=== PATIENT | male | born 1955 | race Caucasian/White ===

== ENCOUNTER 2019-07-22 09:17 | Day surgery (SDC) | payer BC ==
[~2019-07-22 09:17] MED LIST: Midazolam 1 MG/ML 2 ML SDV ONE; Propofol 200 MG/20 ML SDV ONE
[2019-07-22] MEDS ORDERED: Sodium Chloride 0.9% 10 ML Syringe FLUSH PRN (09:30)
[2019-07-22] MEDS: Lactated Ringers 1,000 ML IV SCH (10:18)
--- NOTE | 2019-07-22 10:47 | PCM.HPR ---
H & P Addendum review - H & P Addendum Review Date of Original H & P: 07/07/19 Date Reviewed: 07/22/19 Time Reviewed: 10:47 Patient was Examined: No Changes
[2019-07-22] MEDS ORDERED: Midazolam 1 MG/ML 2 ML SDV ONE (10:52)
[2019-07-22] MEDS ORDERED: Propofol 200 MG/20 ML SDV ONE ×2 (10:52→11:32)
--- NOTE | 2019-07-22 11:19 | PCM.OPNOTE ---
- General Post-Op/Procedure Note Date of Surgery/Procedure: 07/22/19 Operative Procedure(s): Colonoscopy Findings: normal Pre Op Diagnosis: FH Polyps Post-Op Diagnosis: Same Anesthesia Technique: BLAS Primary Surgeon: Georgi Moore Anesthesia Provider: Jacquie Mari Complications: None Condition: Good
--- NOTE | 2019-07-22 14:28 | OR ---
Date of Procedure: 07/22/2019 PREOPERATIVE DIAGNOSIS: Family history of colon polyps in mother. POSTOPERATIVE DIAGNOSIS: Normal colonoscopy. PROCEDURE: Colonoscopy. ANESTHESIA: IV sedation. DESCRIPTION OF PROCEDURE: The patient was brought to the procedure room where he was placed on his left side and IV sedation administered. Digital rectal exam was performed which was normal. Colonoscope was inserted and advanced to the level of the cecum with minimal difficulty getting through the ascending colon, requiring some pressure on the abdomen. Cecum was reached and confirmed by identifying the appendiceal lumen and ileocecal valve. Prep was good and surfaces were well visualized. Upon withdrawing the scope, the ascending, transverse, and descending colon were normal in appearance. Sigmoid colon and rectum were normal. Retroflexion was normal. Air was removed and the scope withdrawn. The patient tolerated the procedure well and returned to Recovery in stable condition. Recommended routine colonoscopy again in 5 years. SABRINA RUSSO MD /[id number]
== END 2019-07-22 13:10 | disposition home or self-care (01) ==
LOC: LL.SDS 09:17
PROVIDERS: ATTEND Surgery
DX: Z12.11 Encounter for screening for malignant neoplasm of colon (principal); E78.5 Hyperlipidemia, unspecified; Z88.8 Allergy status to other drugs, medicaments and biological substances; Z91.018 Allergy to other foods; Z99.89 Dependence on other enabling machines and devices; Z80.0 Family history of malignant neoplasm of digestive organs; Z79.899 Other long term (current) drug therapy
CPT/HCPCS: J2250; J2704; J7120

== ENCOUNTER 2021-05-01 18:41 | Emergency (ER) | payer MEDICARE, BC ==
[2021-05-01] MEDS: Acetaminophen/HYDROcodone 325-10 MG Tab PO ONE (19:09)
--- NOTE | 2021-05-01 19:11 | EDM.PDOC ---
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 The gate swung open and he fell backwards. He landed with axial force on his head and he was pulled out of the way of the cattle. No LOC. Not on blood thinners/. This happened several hours prior to arrival. He managed to finish working cattle, went home, showered and came here. Ambulatory at the ED. Complains of neck pain, headache, left shoulder pain. No numbness down the left arm. no elbow, wrist or hand problems. he is left arm dominant. Not on a blood thinner Onset: Today, Sudden Duration: Hour(s): Location: Reports: Head, Face, Upper Extremity, Left Improves with: Reports: None Worsens with: Reports: Movement Associated Symptoms: Reports: No Other Symptoms. Denies: Confusion Shoulder Pain Score (Numeric/FACES): 7 - Related Data Allergies Allergy/AdvReac Type Severity Reaction Status Date / Time atorvastatin Allergy Other Verified 05/01/21 18:48 sesame oil Allergy Rash Verified 05/01/21 18:48 Home Meds: Home Meds Multivitamin [Multi-Vitamin Daily] 1 tab PO DAILY 07/13/14 [History] Fenofibrate Nanocrystallized [Tricor] 145 mg PO DAILY 07/22/19 [History] Fish Oil/[place]-3 Fatty Acids [Fish Oil 1,000 MG] 2,000 mg PO BID 07/22/19 [History] Flaxseed Oil 1,000 mg PO BID 07/22/19 [History] Cyclobenzaprine [Flexeril] 10 mg PO TID PRN #15 tab 05/01/21 [Rx] Hydrocodone/Acetaminophen [HYDROcodone-Acetaminophen 5-325 MG] 1 each PO Q6HR PRN #14 tab 05/01/21 [Rx] Past Medical History Cardiovascular History: Reports: High Cholesterol - Past Surgical History GI Surgical History: Reports: Appendectomy Review of Systems - Review of Systems Review Of Systems: See Below Constitutional: Reports: No Symptoms. Denies: Chills, Diaphoresis, Fever Eyes: Reports: No Symptoms Ears: Reports: No Symptoms. Denies: Dizziness, Pain, Tinnitus, Bloody Discharge Nose: Reports: No Symptoms. Denies: Clots, Epistaxis, Clear Discharge, Purulent Discharge Mouth/Throat: Reports: No Symptoms. Denies: Lip Swelling, Tongue Swelling, Loose Teeth, Difficulty Swallowing Respiratory: Reports: No Symptoms. Denies: Shortness of Breath, Wheezing, Cough Cardiovascular: Reports: No Symptoms. Denies: Chest Pain, Lightheadedness GI/Abdominal: Reports: No Symptoms. Denies: Abdominal Pain, Diarrhea, Nausea, Vomiting Genitourinary: Reports: No Symptoms. Denies: Dysuria, Hematuria Musculoskeletal: Reports: Neck Pain, Shoulder Pain (left). Denies: Back Pain Skin: Reports: No Symptoms Neurological: Reports: Headache Psychiatric: Reports: No Symptoms ED EXAM, GENERAL - Physical Exam Exam: See Below Exam Limited By: Altered Mental Status General Appearance: Alert, WD/WN, No Apparent Distress Eye Exam: Bilateral Eye: EOMI, Normal Inspection, PERRL Ears: Normal External Exam, Normal Canal, Normal TMs Nose: Normal Inspection, Normal Mucosa, No Blood, Nasal Deformity Throat/Mouth: Normal Inspection, Normal Lips, Normal Teeth, Normal Voice Head: Other (bruising on the top of the head, no step off or deformities) Neck: Limited Range of Motion, Other (Painful to palpation of the posterior neck, spasm on the left trapezius. No pain to palpation of the left scapula) Respiratory/Chest: No Respiratory Distress, Lungs Clear, Normal Breath Sounds Cardiovascular: Normal Peripheral Pulses, Regular Rate, Rhythm, No Murmur GI/Abdominal: Normal Bowel Sounds, Soft, No Abnormal Bruit Back Exam: Normal Inspection, Full Range of Motion Extremities: Limited Range of Motion (left shoulder with deformity of the AC joint and tenting of skin, no pain to palpation of the proximal humerus, normal sensation at the deltoid. No pain to flexion, extension of the elbow, and wrist. Normal sensation. slight decrease in the hammerer strength on the left due to pain in the clavicle ) Neurological: Alert, Oriented, Normal Cognition, No Motor/Sensory Deficits Psychiatric: Normal Affect Skin Exam: Warm Course - Vital Signs Last Recorded V/S: Last Vital Signs Temp 36.7 C 05/01/21 18:42 Pulse 91 05/01/21 18:42 Resp 20 05/01/21 18:42 BP 151/98 H 05/01/21 18:42 Pulse Ox 100 05/01/21 18:42 - Orders/Labs/Meds Orders: Active Orders 24 hr Category Date Time Status Cervical Spine wo Cont [CT] Stat Exams 05/01/21 19:06 Taken Chest 2V [CR] Stat Exams 05/01/21 19:06 Taken Head wo Cont [CT] Stat Exams 05/01/21 19:06 Taken Shoulder Comp Lt [CR] Stat Exams 05/01/21 19:06 Taken Meds: Medications Discontinued Medications Generic Name Dose Route Start Last Admin Trade Name Freq PRN Reason Stop Dose Admin Hydrocodone Bitart/Acetaminophen 1 tab 05/01/21 19:06 05/01/21 19:09 Acetaminophen/Hydrocodone 325-10 Mg Tab PO 05/01/21 19:07 1 tab ONETIME ONE Administration - Radiology Interpretation Free Text/Narrative:: chest x-ray no acute, left shoulder with 3rd degree AC separation, no fracture. awaiting interpretation Ct scan head no acute, ct scan neck with arthritic changes no acute, discussed with radiologist - Re-Assessments/Exams Free Text/Narrative Re-Assessment/Exam: 05/01/21 19:16 Patient desires an oral pain pill. hydrocodone offered Will get a CT of the head, c spine, x-ray of the left shoulder and chest. Will not put on c collar due to left clavicle deformity, has happened mutliple hours ago. Will limit his motion. 05/01/21 21:00 Discussed results with patient . Advised close follow up with orthopedics as this injury will be difficult without operative intervention. Given number for [facility] Given tramadol for tonight due to limited narcotic options and scripts for hydrocodone and flexeril for home. Sling, given advised to return for neurologic changes. Departure - Departure Time of Disposition: 20:47 Disposition: Home, Self-Care 01 Condition: Good Clinical Impression: Head injury, Cervical strain, AC separation - Discharge Information *PRESCRIPTION DRUG MONITORING PROGRAM REVIEWED*: Not Applicable *COPY OF PRESCRIPTION DRUG MONITORING REPORT IN PATIENT GO: Not Applicable Prescriptions: Cyclobenzaprine [Flexeril] 10 mg PO TID PRN #15 tab PRN Reason: Pain Hydrocodone/Acetaminophen [HYDROcodone-Acetaminophen 5-325 MG] 1 each PO Q6HR PRN #14 tab PRN Reason: Pain/Fever Instructions: Head Injury, Adult, Acromioclavicular Separation, Cervical Strain and Sprain Rehab-SportsMed, How To Use a Sling, [id number] Forms: ED Department Discharge Additional Instructions: Ice, make sure you are moving your neck frequently as the muscles will spasm more over the next two days. You were given hydrocoodone in the Ed and a prescription to use as needed for pain but do not use with alcohol. You are given a prescription for a muscle relaxer, flexeril to use for spasm. The tramadol you are sent home with are more mild pain pill and can use them tonight or every 8 hours as needed for mild pain that tylenol does not help. You should expect to get more sore for the next several days. MOvement, stretching will help. The left shoulder need surgical consultation dueto the pressure on the skin. Call [facility] at [phone] to be seen for your 3rd degree AC separation and surgical consultation. Use the sling at all times. elevate the hand on the chest to minimae swelling. You head CT was negative, but you can have headaches, dizziness, nausea and light sensitivity for several days. Try to limit strenuous activity and return to the ED for persistent vomiting, neurological changes Sepsis Event Note (ED) - Evaluation Sepsis Screening Result: No Definite Risk - Focused Exam Vital Signs: Vital Signs Temp Pulse Resp BP Pulse Ox 05/01/21 18:42 36.7 C 91 20 151/98 H 100 - My Orders Last 24 Hours: My Active Orders 05/01/21 19:06 Cervical Spine wo Cont [CT] Stat Chest 2V [CR] Stat Head wo Cont [CT] Stat Shoulder Comp Lt [CR] Stat - Assessment/Plan Last 24 Hours: My Active Orders 05/01/21 19:06 Cervical Spine wo Cont [CT] Stat Chest 2V [CR] Stat Head wo Cont [CT] Stat Shoulder Comp Lt [CR] Stat
== END 2021-05-01 21:21 | disposition home or self-care (01) ==
LOC: LL.ED 18:41
DX: S43.102A Unspecified dislocation of left acromioclavicular joint, initial encounter (principal); S16.1XXA Strain of muscle, fascia and tendon at neck level, initial encounter; S00.83XA Contusion of other part of head, initial encounter; E78.00 Pure hypercholesterolemia, unspecified; Z79.899 Other long term (current) drug therapy; Z88.8 Allergy status to other drugs, medicaments and biological substances; Z91.048 Other nonmedicinal substance allergy status; W18.39XA Other fall on same level, initial encounter; Y92.009 Unspecified place in unspecified non-institutional (private) residence as the place of occurrence of the external cause; Y99.0 Civilian activity done for income or pay
CPT/HCPCS: 70450; 71046; 72125; 73030-LT; 99284; 99284-25; A9270-GY

== ENCOUNTER 2022-07-03 10:24 | Inpatient (IN) | payer MEDICARE, BC ==
[2022-07-03 11:26] LABS: ANION GAP 12.7 meq/L (7-15)
[2022-07-03] MEDS ORDERED: Sodium Chloride 0.9% 1,000 ML IV ONE ×2 (11:31→13:28)
[2022-07-03] MEDS ORDERED: Morphine 4 MG/ML Syringe IVPUSH ONE (11:32)
[2022-07-03] MEDS: Ondansetron 4 MG/2 ML SDV IVPUSH ONE ×2 (11:52→11:54)
[2022-07-03] MEDS ORDERED: Iopamidol 612 MG/ML 100 ML Bottle IVPUSH ONE (13:11)
[2022-07-03] MEDS ORDERED: Morphine 2 MG/ML SYRINGE IVPUSH ONE (14:54)
[2022-07-03] MEDS ORDERED: Ondansetron 4 MG/2 ML SDV IVPUSH PRN (16:56)
[2022-07-03] MEDS ORDERED: Morphine 2 MG/ML SYRINGE IVPUSH PRN (16:56)
[2022-07-03] MEDS ORDERED: Metoprolol Tartrate 25 MG Tab PO ONE (17:30)
[2022-07-03] MEDS ORDERED: hydrALAZINE 10 MG Tab PO ONE (17:33)
[2022-07-03] MEDS: Metoprolol Succinate 25 MG Tab.ER PO SCH (20:04)
[2022-07-03] MEDS: Sodium Chloride 0.9% 1,000 ML IV SCH (23:41)
[2022-07-04 07:38] LABS: ANION GAP 12.6 meq/L (7-15)
[2022-07-04] MEDS: Sodium Chloride 0.9% 1,000 ML IV SCH ×2 (09:39→20:13)
[2022-07-04] MEDS: Metoprolol Succinate 25 MG Tab.ER PO SCH (21:49)
[2022-07-05 08:51] LABS: ANION GAP 6.6 meq/L (7-15)
== END 2022-07-05 10:40 | disposition home or self-care (01) | DRG 390 ==
LOC: LL.ED 10:24 → LL.MS 15:54
PROVIDERS: ADMIT Emergency Medicine; ATTEND Emergency Medicine
DX: K56.600 Partial intestinal obstruction, unspecified as to cause (principal); E78.5 Hyperlipidemia, unspecified; R03.0 Elevated blood-pressure reading, without diagnosis of hypertension; Z79.899 Other long term (current) drug therapy; Z88.8 Allergy status to other drugs, medicaments and biological substances; Z90.49 Acquired absence of other specified parts of digestive tract
CPT/HCPCS: 36415; 74022; 74177; 80048; 80053; 82150; 83605; 83690; 85025; 85379; A9270-GY; J2270; J2405; J7030; Q9967

== ENCOUNTER 2023-06-04 17:38 | Emergency (ER) | payer BC, MEDICARE, OTHER ==
[2023-06-04] MEDS ORDERED: Ondansetron 4 MG/2 ML SDV ONE (17:51)
[2023-06-04] MEDS ORDERED: fentaNYL 50 MCG/ML SDV ONE (17:51)
[2023-06-04] MEDS ORDERED: fentaNYL 50 MCG/ML SDV IVPUSH ONE (17:54)
[2023-06-04] MEDS ORDERED: Ondansetron 4 MG/2 ML SDV IVPUSH ONE (17:54)
[2023-06-04 17:55] LABS: BASOPHILS ABSOLUTE AUTO 0.02 K/uL (0.00-0.20); BASOPHILS PERCENT AUTO 0.2 % (0.0-2.0); EOSINOPHILS ABSOLUTE AUTO 0.14 K/uL (0.00-0.50); EOSINOPHILS PERCENT AUTO 1.5 % (0.0-5.0); HEMATOCRIT 47.9 % (39.0-49.0); HEMOGLOBIN 16.4 g/dL (13.1-16.8); LYMPHOCYTES ABSOLUTE AUTO 1.44 K/uL (0.50-3.50); LYMPHOCYTES PERCENT AUTO 15.6 % (10.0-50.0); MEAN CORPUSCULAR HEMOGLOBIN 29.7 pg (28.2-33.3); MEAN CORPUSCULAR HGB CONC 34.2 g/dL (31.7-36.0); MEAN CORPUSCULAR VOLUME 86.8 fL (84.0-98.0); MONOCYTES ABSOLUTE AUTO 0.45 K/uL (0.00-1.00); MONOCYTES PERCENT AUTO 4.9 % (2.0-14.0); NEUTROPHILS ABSOLUTE AUTO 7.19 K/uL (1.40-7.00); NEUTROPHILS PERCENT AUTO 77.8 % (45.0-80.0); PLATELET COUNT,PLT 244 K/uL (150-350); RED BLOOD CELL COUNT 5.52 M/uL (4.33-5.41); RED CELL DISTRIBUTION WIDTH 14.2 % (11.2-14.1); WHITE BLOOD CELL COUNT,WBC 9.2 K/uL (4.0-10.2)
[2023-06-04] MEDS ORDERED: Iopamidol 612 MG/ML 100 ML Bottle IVPUSH ONE (17:55)
[2023-06-04 18:05] LABS: ALANINE AMINOTRANSFERASE,ALT 34 U/L (12-78); ALBUMIN 4.7 g/dL (3.4-5.0); ALKALINE PHOSPHATASE 59 IU/L (46-116); ANION GAP 17.2 meq/L (7-15); ASPARTATE AMNIOTRANSFERASE,AST 38 U/L (15-37); BILIRUBIN TOTAL 0.5 mg/dL (0.2-1.0); BLOOD UREA NITROGEN,BUN 26 mg/dL (7-18); CALCIUM 10.2 mg/dL (8.5-10.1); CARBON DIOXIDE,CO2 22.2 mmol/L (21.0-32.0); CHLORIDE,CL 110 mmol/L (98-107); CREATININE 1.31 mg/dL (0.51-1.17); ESTIMATED GFR 59 mL/min (>=60); GLUCOSE RANDOM 124 mg/dL (70-99); LIPASE 56 U/L (16-77); POTASSIUM,K 4.4 mmol/L (3.5-5.1); PROTEIN TOTAL,TP 8.2 g/dL (6.4-8.2); SODIUM,NA 145 mmol/L (136-145)
[2023-06-04 18:21] LABS: PROTHROMBIN TIME 9.8 SEC (9.0-11.1)
[2023-06-04] MEDS ORDERED: Ketorolac 15 MG/ML SDV ONE (19:06)
== END 2023-06-04 20:19 ==
LOC: LL.ED 17:38
DX: S27.321A Contusion of lung, unilateral, initial encounter (principal); S22.5XXA Flail chest, initial encounter for closed fracture; S27.2XXA Traumatic hemopneumothorax, initial encounter; E78.00 Pure hypercholesterolemia, unspecified; Z88.8 Allergy status to other drugs, medicaments and biological substances; Z91.048 Other nonmedicinal substance allergy status; Z79.899 Other long term (current) drug therapy; Z90.49 Acquired absence of other specified parts of digestive tract; V80.010A Animal-rider injured by fall from or being thrown from horse in noncollision accident, initial encounter
CPT/HCPCS: 36415; 71260; 74177; 80053; 83690; 85025; 85610; 96361; 96374; 96375; 99284; 99285-25; J1885; J2405; J3010; Q9967

== ENCOUNTER 2025-02-05 13:29 | Emergency (ER) | payer MEDICARE ==
[~2025-02-05 13:29] MED LIST changes: +Iopamidol 612 MG/ML 100 ML Bottle IVPUSH ONE; -Midazolam 1 MG/ML 2 ML SDV ONE; +Ondansetron 4 MG/2 ML SDV ONE; -Propofol 200 MG/20 ML SDV ONE; +fentaNYL 50 MCG/ML SDV ONE
[2025-02-05] MEDS: Iopamidol 612 MG/ML 100 ML Bottle ONE (13:45)
[2025-02-05] MEDS ORDERED: Naloxone 0.4 MG/ML SDV IVPUSH PRN (13:52)
[2025-02-05] MEDS ORDERED: Ondansetron 4 MG/2 ML SDV IVPUSH ONE (13:52)
[2025-02-05] MEDS ORDERED: fentaNYL 50 MCG/ML SDV IVPUSH ONE (13:52)
[2025-02-05] MEDS ORDERED: Sodium Chloride 0.9% 10 ML Syringe FLUSH PRN (13:53)
[2025-02-05 13:57] LABS: BASOPHILS ABSOLUTE AUTO 0.02 K/uL (0.00-0.20); BASOPHILS PERCENT AUTO 0.3 % (0.0-2.0); EOSINOPHILS ABSOLUTE AUTO 0.16 K/uL (0.00-0.50); EOSINOPHILS PERCENT AUTO 2.5 % (0.0-5.0); HEMATOCRIT 49.1 % (39.0-49.0); HEMOGLOBIN 16.9 g/dL (13.1-16.8); IMMATURE GRAN ABSOLUTE AUTO 0.03 10^3/uL (0.00-0.04); IMMATURE GRAN PERCENT AUTO 0.5 % (0.0-0.4); LYMPHOCYTES ABSOLUTE AUTO 1.72 K/uL (0.50-3.50); LYMPHOCYTES PERCENT AUTO 26.6 % (10.0-50.0); MEAN CORPUSCULAR HGB CONC 34.4 g/dL (31.7-36.0); MEAN CORPUSCULAR VOLUME 87.2 fL (84.0-98.0); MONOCYTES ABSOLUTE AUTO 0.59 K/uL (0.00-1.00); MONOCYTES PERCENT AUTO 9.1 % (2.0-14.0); NEUTROPHILS ABSOLUTE AUTO 3.95 K/uL (1.40-7.00); PLATELET COUNT,PLT 260 K/uL (150-350); RED BLOOD CELL COUNT 5.63 M/uL (4.33-5.41); RED CELL DISTRIBUTION WIDTH 13.4 % (11.2-14.1); WHITE BLOOD CELL COUNT,WBC 6.5 K/uL (4.0-10.2)
[2025-02-05 14:00] LABS: ALANINE AMINOTRANSFERASE,ALT 63 U/L (12-78); ALBUMIN 4.1 g/dL (3.4-5.0); ALKALINE PHOSPHATASE 60 IU/L (46-116); ANION GAP 9.4 meq/L (7-15); ASPARTATE AMNIOTRANSFERASE,AST 34 U/L (15-37); BILIRUBIN TOTAL 0.7 mg/dL (0.2-1.0); BLOOD UREA NITROGEN,BUN 22 mg/dL (7-18); CALCIUM 9.9 mg/dL (8.5-10.1); CARBON DIOXIDE,CO2 25.6 mmol/L (21.0-32.0); CHLORIDE,CL 106 mmol/L (98-107); CREATININE 1.16 mg/dL (0.51-1.17); GLUCOSE RANDOM 118 mg/dL (70-99); POTASSIUM,K 4.1 mmol/L (3.5-5.1); PROTEIN TOTAL,TP 7.7 g/dL (6.4-8.2); SODIUM,NA 141 mmol/L (136-145)
[2025-02-05 14:01] LABS: ESTIMATED GFR 68 mL/min (>=60)
[2025-02-05 14:06] LABS: MAGNESIUM 1.9 mg/dL (1.8-2.4)
[2025-02-05 14:07] LABS: PROTHROMBIN TIME 9.9 SEC (9.0-11.1); PTT,PARTIAL THROMBOPLSTIN TIME 22.4 SEC (23.8-34.4)
== END 2025-02-05 15:16 | disposition home or self-care (01) ==
LOC: LL.ED 13:29
DX: S31.139A Puncture wound of abdominal wall without foreign body, unspecified quadrant without penetration into peritoneal cavity, initial encounter (principal); E78.00 Pure hypercholesterolemia, unspecified; Z88.8 Allergy status to other drugs, medicaments and biological substances; Z91.018 Allergy to other foods; Z79.899 Other long term (current) drug therapy; W34.09XA Accidental discharge from other specified firearms, initial encounter; Y93.89 Activity, other specified
CPT/HCPCS: 36415; 71260; 74177; 80053; 83735; 85025; 85610; 85730; 99285; J2405; J3010; Q9967

== ENCOUNTER 2025-02-10 12:06 | Day surgery (SDC) | payer MEDICARE ==
[~2025-02-10 12:06] MED LIST changes: -Iopamidol 612 MG/ML 100 ML Bottle IVPUSH ONE; +Midazolam 1 MG/ML 2 ML SDV ONE; -Ondansetron 4 MG/2 ML SDV ONE; +Propofol 200 MG/20 ML SDV ONE; +Sodium Chloride 0.9% 10 ML Syringe FLUSH PRN; -fentaNYL 50 MCG/ML SDV ONE
[2025-02-10] MEDS: Lactated Ringers 1,000 ML IV SCH (13:09)
[2025-02-10] MEDS ORDERED: Propofol 200 MG/20 ML SDV IV ONE (13:20)
[2025-02-10 14:07] VITALS: BP 132/95; PULSE 86
== END 2025-02-10 14:35 | disposition home or self-care (01) ==
LOC: LL.SDS 12:06
PROVIDERS: ATTEND Surgery
DX: Z12.11 Encounter for screening for malignant neoplasm of colon (principal); Z80.0 Family history of malignant neoplasm of digestive organs; E78.00 Pure hypercholesterolemia, unspecified; G47.33 Obstructive sleep apnea (adult) (pediatric); Z79.899 Other long term (current) drug therapy; Z88.8 Allergy status to other drugs, medicaments and biological substances
CPT/HCPCS: J2250; J2704; J7120

== ENCOUNTER 2025-05-07 17:25 | Emergency (ER) | payer MEDICARE ==
[2025-05-07] MEDS: Ondansetron 4 MG/2 ML SDV IVPUSH ONE (17:50)
[2025-05-07] MEDS: Sodium Chloride 0.9% 10 ML Syringe FLUSH PRN (17:51)
[2025-05-07] MEDS: Ondansetron 4 MG/2 ML SDV ONE (17:52)
[2025-05-07] MEDS: Alum Hydrox/Mag Hydrox/Simeth 30 ML, Lidocaine 2% 15 ML PO ONE (17:53)
[2025-05-07] MEDS: Nitroglycerin 0.4 MG Tab.SL SL ONE ×2 (18:00→18:09)
[2025-05-07 18:01] LABS: BASOPHILS ABSOLUTE AUTO 0.04 K/uL (0.00-0.20); BASOPHILS PERCENT AUTO 0.6 % (0.0-2.0); EOSINOPHILS ABSOLUTE AUTO 0.13 K/uL (0.00-0.50); EOSINOPHILS PERCENT AUTO 1.8 % (0.0-5.0); IMMATURE GRAN ABSOLUTE AUTO 0.02 10^3/uL (0.00-0.04); IMMATURE GRAN PERCENT AUTO 0.3 % (0.0-0.4); LYMPHOCYTES ABSOLUTE AUTO 1.63 K/uL (0.50-3.50); LYMPHOCYTES PERCENT AUTO 23.0 % (10.0-50.0); MONOCYTES ABSOLUTE AUTO 0.70 K/uL (0.00-1.00); MONOCYTES PERCENT AUTO 9.9 % (2.0-14.0); NEUTROPHILS ABSOLUTE AUTO 4.58 K/uL (1.40-7.00); NEUTROPHILS PERCENT AUTO 64.4 % (45.0-80.0); PLATELET COUNT,PLT 331 K/uL (150-350); RED BLOOD CELL COUNT 5.29 M/uL (4.33-5.41); RED CELL DISTRIBUTION WIDTH 13.3 % (11.2-14.1); WHITE BLOOD CELL COUNT,WBC 7.1 K/uL (4.0-10.2)
[2025-05-07] MEDS: Nitroglycerin 0.4 MG Tab.SL ONE (18:03)
[2025-05-07 18:20] LABS: ALANINE AMINOTRANSFERASE,ALT 52.0 U/L (12-78); ASPARTATE AMNIOTRANSFERASE,AST 30.0 U/L (15-37); BILIRUBIN TOTAL 0.5 mg/dL (0.2-1.0); BLOOD UREA NITROGEN,BUN 23.0 mg/dL (7-18); CARBON DIOXIDE,CO2 23.1 mmol/L (21.0-32.0); CHLORIDE,CL 106.0 mmol/L (98-107); CREATININE 1.16 mg/dL (0.51-1.17); EST CRCL DRUG DOSING (CG) 53.47 mL/min; GLUCOSE RANDOM 118.0 mg/dL (70-99); POTASSIUM,K 4.1 mmol/L (3.5-5.1); PROTEIN TOTAL,TP 7.4 g/dL (6.4-8.2); SODIUM,NA 141.0 mmol/L (136-145)
[2025-05-07 18:21] LABS: ESTIMATED GFR 68.0 mL/min (>=60)
[2025-05-07 18:32] LABS: INR 1.0 (0.9-1.1); PTT,PARTIAL THROMBOPLSTIN TIME 23.9 SEC (23.8-34.4)
[2025-05-07] MEDS: Iopamidol 755 Mg/ML 100 ML Bottle IVPUSH STA (19:08)
[2025-05-07] MEDS: Take Home: Doxycycline 100 MG Cap, 4 Cap Pack PO ONE (20:48)
== END 2025-05-07 20:57 | disposition home or self-care (01) ==
LOC: LL.ED 17:25
DX: R07.9 Chest pain, unspecified (principal); J18.9 Pneumonia, unspecified organism; I10 Essential (primary) hypertension; Z88.8 Allergy status to other drugs, medicaments and biological substances; Z91.09 Other allergy status, other than to drugs and biological substances; Z79.899 Other long term (current) drug therapy; Z90.49 Acquired absence of other specified parts of digestive tract
CPT/HCPCS: 36415; 71045; 71275; 80053; 83735; 84484; 85025; 85379; 85610; 85730; 86140; 96374; 96375; 99285; A9270; J2405; Q9967; J1171

== ENCOUNTER 2025-05-08 20:59 | Emergency (ER) | payer MEDICARE ==
[2025-05-08] MEDS: Nitroglycerin 0.4 MG Tab.SL SL PRN (21:08)
[2025-05-08] MEDS: Nitroglycerin 0.4 MG Tab.SL ONE (21:08)
[2025-05-08] MEDS ORDERED: Sodium Chloride 0.9% 10 ML Syringe FLUSH PRN (21:12)
[2025-05-08 21:19] LABS: BASOPHILS ABSOLUTE AUTO 0.01 K/uL (0.00-0.20); BASOPHILS PERCENT AUTO 0.1 % (0.0-2.0); EOSINOPHILS ABSOLUTE AUTO 0.00 K/uL (0.00-0.50); EOSINOPHILS PERCENT AUTO 0.0 % (0.0-5.0); IMMATURE GRAN ABSOLUTE AUTO 0.03 10^3/uL (0.00-0.04); IMMATURE GRAN PERCENT AUTO 0.3 % (0.0-0.4); LYMPHOCYTES ABSOLUTE AUTO 0.54 K/uL (0.50-3.50); LYMPHOCYTES PERCENT AUTO 4.9 % (10.0-50.0); MONOCYTES ABSOLUTE AUTO 0.81 K/uL (0.00-1.00); MONOCYTES PERCENT AUTO 7.4 % (2.0-14.0); NEUTROPHILS ABSOLUTE AUTO 9.55 K/uL (1.40-7.00); NEUTROPHILS PERCENT AUTO 87.3 % (45.0-80.0); PLATELET COUNT,PLT 303 K/uL (150-350); RED BLOOD CELL COUNT 5.55 M/uL (4.33-5.41); RED CELL DISTRIBUTION WIDTH 13.3 % (11.2-14.1); WHITE BLOOD CELL COUNT,WBC 10.9 K/uL (4.0-10.2)
[2025-05-08] MEDS: Heparin Sodium 5,000 Units/ML Vial IVPUSH ONE (21:24)
[2025-05-08] MEDS: Heparin Sodium/0.45% NaCl 500 ML IV STA (21:25)
[2025-05-08 21:43] LABS: ALANINE AMINOTRANSFERASE,ALT 77 U/L (12-78); ASPARTATE AMNIOTRANSFERASE,AST 53 U/L (15-37); BILIRUBIN TOTAL 0.8 mg/dL (0.2-1.0); BLOOD UREA NITROGEN,BUN 13 mg/dL (7-18); CARBON DIOXIDE,CO2 24.7 mmol/L (21.0-32.0); CHLORIDE,CL 101 mmol/L (98-107); CREATININE 1.21 mg/dL (0.51-1.17); GLUCOSE RANDOM 128 mg/dL (70-99); POTASSIUM,K 4.5 mmol/L (3.5-5.1); PROTEIN TOTAL,TP 7.8 g/dL (6.4-8.2); SODIUM,NA 136 mmol/L (136-145)
[2025-05-08 21:44] LABS: ESTIMATED GFR 64 mL/min (>=60)
[2025-05-08] MEDS ORDERED: Lactated Ringers 1,000 ML IV SCH (21:45)
[2025-05-08 23:05] LABS: INR 1.2 (0.9-1.1); PTT,PARTIAL THROMBOPLSTIN TIME 26.5 SEC (23.8-34.4)
[2025-05-08] MEDS: Nitroglycerin 0.4 MG Tab.SL SL ONE (23:55)
[2025-05-08] MEDS: Nitroglycerin 2% Oint 1 GM UD Packet TOP ONE (23:56)
[2025-05-09] MEDS: Heparin Sodium/0.45% NaCl 500 ML IV STA (00:54)
== END 2025-05-09 00:40 ==
LOC: LL.ED 20:59
DX: I20.0 Unstable angina (principal); E78.00 Pure hypercholesterolemia, unspecified; Z88.8 Allergy status to other drugs, medicaments and biological substances; Z79.899 Other long term (current) drug therapy; Z90.49 Acquired absence of other specified parts of digestive tract
CPT/HCPCS: 36415; 80053; 83735; 84484; 85025; 85610; 85730; 86140; 93005; 96365; 96366; 96375; 96376; 99285; A9270; J1644; J2270; 93010; 99284